=== PATIENT | female | born 1975 | race Caucasian/White ===

== ENCOUNTER 2017-09-04 19:00 | Inpatient (IN) | payer OTHER ==
[2017-09-04] MEDS: HYDROmorphONE 0.5 MG/0.5 ML SYG IV ×2 (19:57→23:02)
[2017-09-04] MEDS ORDERED: ONDANSETRON 4 MG INJ IV (20:30)
[2017-09-04] MEDS ORDERED: ACETAMINOPHEN 325 MG TAB PO (20:30)
[2017-09-04] MEDS ORDERED: DOCUSATE SODIUM 100 MG CAP PO (20:30)
[2017-09-04] MEDS ORDERED: NACL 0.9% 3 ML SYG IV (20:30)
[2017-09-04] MEDS ORDERED: BISACODYL (EC) 5 MG TAB PO (20:30)
[2017-09-04 21:38] LABS: ADD MAN DIFF? NO
[2017-09-04 21:46] LABS: WHITE BLOOD COUNT 4.1 10^3/ul (4.8-10.8)
[2017-09-04 21:46] LABS: BASOPHILS % 0.2 % (0.0-2.0); EOSINOPHILS # 0.1 10^3/ul (0.0-0.5); EOSINOPHILS % 2.7 % (0.0-7.0); HEMATOCRIT 39.3 % (37.0-47.0); HEMOGLOBIN 13.1 g/dl (12.0-16.0); LYMPHOCYTES # 1.4 10^3/ul (0.8-2.9); LYMPHOCYTES % 34.4 % (15.0-51.0); MEAN CORPUSCULAR HEMOGLOBIN 28.5 pg (29.0-33.0); MEAN CORPUSCULAR HGB CONC 33.3 g/dl (32.0-37.0); MEAN CORPUSCULAR VOLUME 85.4 fl (82.0-101.0); MEAN PLATELET VOLUME 8.9 fl (7.4-10.4); MONOCYTE # 0.4 10^3/ul (0.3-0.9); NEUTROPHIL # 2.2 10^3/ul (1.6-7.5); NEUTROPHILS % 53.5 % (39.0-77.0); PLATELET COUNT 172 10^3/UL (140-415); RED CELL DISTRIBUTION WIDTH 14.2 % (11.5-14.5)
[2017-09-04 21:56] LABS: HEMOGLOBIN A1C 5.3 % (0-5.9)
[2017-09-04 22:01] LABS: CHOLESTEROL 195 mg/dl (100-200)
[2017-09-04 22:01] LABS: ALANINE AMINOTRANSFERASE 39 IU/L (13-69); ALBUMIN 3.9 g/dl (3.3-4.9); ALBUMIN/GLOBULIN RATIO 1.21; ALKALINE PHOSPHATASE 99 IU/L (42-121); ANION GAP 12 (8-16); ASPARTATE AMINO TRANSFERASE 41 IU/L (15-46); BILIRUBIN,INDIRECT 0.5 mg/dl (0-1.1); BILIRUBIN,TOTAL 0.5 mg/dl (0.2-1.3); BLOOD UREA NITROGEN 12 mg/dl (7-20); CARBON DIOXIDE 29 mmol/L (21-31); CHLORIDE 101 mmol/L (97-110); CHOL/HDL RATIO 3.3 RATIO; CREATININE 0.82 mg/dl (0.44-1.00); GLUCOSE 111 mg/dl (70-220); HDL CHOLESTEROL 58 mg/dl (34-88); LDL CHOLESTEROL,CALCULATED 93 mg/dl; POTASSIUM 3.6 mmol/L (3.5-5.1); SODIUM 138 mmol/L (135-144); TOTAL PROTEIN 7.1 g/dl (6.1-8.1); TRIGLYCERIDES 219 mg/dl (0-149)
[2017-09-04 22:07] LABS: INR 1.09; PROTIME 14.2 Sec (11.9-14.9); PT RATIO 1.1
[2017-09-04 22:08] LABS: PARTIAL THROMBOPLASTIN TIME 34.3 Sec (25.0-35.0)
[2017-09-04 22:26] LABS: MAGNESIUM 1.8 mg/dl (1.7-2.5)
[2017-09-04] MEDS ORDERED: VITAMIN A & D 5 GM OINT PACKET TOP (23:07)
[2017-09-04] MEDS: GABAPENTIN 400 MG CAP PO (23:30)
[2017-09-05] MEDS: morphine 2 MG INJ IV ×2 (01:07→06:19)
[2017-09-05] MEDS: CEFTRIAXONE 1 GM/50 ML (PMX) 50 ML IVPB (01:08)
[2017-09-05] MEDS: HYDROmorphONE 0.5 MG/0.5 ML SYG IV ×6 (03:49→20:03)
[2017-09-05] MEDS ORDERED: clonAZEPAM 0.5 MG TAB PO (04:30)
[2017-09-05] MEDS: GABAPENTIN 400 MG CAP PO ×3 (06:19→21:38)
[2017-09-05] MEDS: ENOXAPARIN 60 MG/0.6 ML SYG SC ×2 (06:26→16:16)
[2017-09-05] MEDS: ESCITALOPRAM 10 MG TAB PO (09:00)
[2017-09-05] MEDS ORDERED: ENOXAPARIN 60 MG/0.6 ML SYG SC (09:00)
[2017-09-05 09:47] LABS: ADD MAN DIFF? NO
[2017-09-05 09:53] LABS: WHITE BLOOD COUNT 3.5 10^3/ul (4.8-10.8)
[2017-09-05 09:53] LABS: BASOPHILS % 0.6 % (0.0-2.0); EOSINOPHILS # 0.2 10^3/ul (0.0-0.5); EOSINOPHILS % 4.9 % (0.0-7.0); HEMATOCRIT 40.7 % (37.0-47.0); HEMOGLOBIN 13.1 g/dl (12.0-16.0); LYMPHOCYTES # 1.2 10^3/ul (0.8-2.9); LYMPHOCYTES % 33.2 % (15.0-51.0); MEAN CORPUSCULAR HGB CONC 32.2 g/dl (32.0-37.0); MONOCYTE # 0.3 10^3/ul (0.3-0.9); MONOCYTES % 9.5 % (0.0-11.0); NEUTROPHIL # 1.8 10^3/ul (1.6-7.5); NEUTROPHILS % 51.5 % (39.0-77.0); PLATELET COUNT 178 10^3/UL (140-415); RED BLOOD COUNT 4.68 10^6/ul (4.20-5.40); RED CELL DISTRIBUTION WIDTH 14.5 % (11.5-14.5)
[2017-09-05 10:16] LABS: ALANINE AMINOTRANSFERASE 47 IU/L (13-69); ALBUMIN/GLOBULIN RATIO 1.14; ALKALINE PHOSPHATASE 107 IU/L (42-121); ANION GAP 16 (8-16); ASPARTATE AMINO TRANSFERASE 57 IU/L (15-46); BILIRUBIN,INDIRECT 0.5 mg/dl (0-1.1); BILIRUBIN,TOTAL 0.5 mg/dl (0.2-1.3); BLOOD UREA NITROGEN 10 mg/dl (7-20); CALCIUM 9.2 mg/dl (8.4-10.2); CARBON DIOXIDE 30 mmol/L (21-31); CHLORIDE 100 mmol/L (97-110); CREATININE 0.66 mg/dl (0.44-1.00); GLUCOSE 85 mg/dl (70-220); SODIUM 142 mmol/L (135-144); TOTAL PROTEIN 7.5 g/dl (6.1-8.1)
[2017-09-05] MEDS: CARISOPRODOL 350 MG TAB PO ×2 (13:02→21:38)
[2017-09-05] MEDS: oxyCODONE (CR) 15 MG TAB [oxyCONTIN] PO (21:38)
[2017-09-05] MEDS: QUETIAPINE 25 MG TAB PO (21:38)
[2017-09-06] MEDS: CEFTRIAXONE 1 GM/50 ML (PMX) 50 ML IVPB (00:09)
[2017-09-06] MEDS: HYDROmorphONE 0.5 MG/0.5 ML SYG IV ×7 (00:09→21:58)
[2017-09-06] MEDS: INFLUENZA VIRUS VACCINE 0.5 ML SYG IM* (00:16)
[2017-09-06] MEDS: GABAPENTIN 400 MG CAP PO ×3 (05:39→21:57)
[2017-09-06] MEDS: ENOXAPARIN 60 MG/0.6 ML SYG SC ×2 (06:00→18:51)
[2017-09-06 07:15] LABS: ADD MAN DIFF? NO
[2017-09-06 07:17] LABS: BASOPHILS % 0.3 % (0.0-2.0); EOSINOPHILS # 0.2 10^3/ul (0.0-0.5); EOSINOPHILS % 7.3 % (0.0-7.0); HEMOGLOBIN 12.2 g/dl (12.0-16.0); LYMPHOCYTES # 1.3 10^3/ul (0.8-2.9); MEAN CORPUSCULAR HEMOGLOBIN 27.9 pg (29.0-33.0); MEAN CORPUSCULAR HGB CONC 32.1 g/dl (32.0-37.0); MEAN PLATELET VOLUME 9.2 fl (7.4-10.4); MONOCYTE # 0.3 10^3/ul (0.3-0.9); MONOCYTES % 8.9 % (0.0-11.0); NEUTROPHIL # 1.4 10^3/ul (1.6-7.5); NEUTROPHILS % 43.2 % (39.0-77.0); PLATELET COUNT 128 10^3/UL (140-415); RED BLOOD COUNT 4.37 10^6/ul (4.20-5.40); RED CELL DISTRIBUTION WIDTH 14.2 % (11.5-14.5)
[2017-09-06 07:17] LABS: WHITE BLOOD COUNT 3.2 10^3/ul (4.8-10.8)
[2017-09-06 07:48] LABS: PHOSPHORUS 3.3 mg/dl (2.5-4.9)
[2017-09-06 07:48] LABS: MAGNESIUM 1.9 mg/dl (1.7-2.5)
[2017-09-06 07:58] LABS: ALANINE AMINOTRANSFERASE 44 IU/L (13-69); ALBUMIN 3.5 g/dl (3.3-4.9); ALBUMIN/GLOBULIN RATIO 1.25; ALKALINE PHOSPHATASE 84 IU/L (42-121); ANION GAP 13 (8-16); ASPARTATE AMINO TRANSFERASE 43 IU/L (15-46); BILIRUBIN,INDIRECT 0.2 mg/dl (0-1.1); BILIRUBIN,TOTAL 0.2 mg/dl (0.2-1.3); BLOOD UREA NITROGEN 11 mg/dl (7-20); CALCIUM 8.7 mg/dl (8.4-10.2); CARBON DIOXIDE 31 mmol/L (21-31); CHLORIDE 103 mmol/L (97-110); CREATININE 0.67 mg/dl (0.44-1.00); GLUCOSE 84 mg/dl (70-220); POTASSIUM 3.8 mmol/L (3.5-5.1); SODIUM 143 mmol/L (135-144); TOTAL PROTEIN 6.3 g/dl (6.1-8.1)
[2017-09-06] MEDS: ESCITALOPRAM 10 MG TAB PO (09:00)
[2017-09-06] MEDS: POLYETHYLENE GLYCOL 17 GM PACKET PO (09:00)
[2017-09-06] MEDS: oxyCODONE (CR) 15 MG TAB [oxyCONTIN] PO ×2 (10:08→21:57)
[2017-09-06] MEDS: CARISOPRODOL 350 MG TAB PO ×2 (10:08→21:57)
[2017-09-06] MEDS: QUETIAPINE 25 MG TAB PO (21:57)
[2017-09-07] MEDS: CEFTRIAXONE 1 GM/50 ML (PMX) 50 ML IVPB (00:04)
[2017-09-07] MEDS: HYDROmorphONE 0.5 MG/0.5 ML SYG IV ×7 (01:03→21:50)
[2017-09-07] MEDS: ENOXAPARIN 60 MG/0.6 ML SYG SC ×2 (04:56→15:57)
[2017-09-07] MEDS: GABAPENTIN 400 MG CAP PO ×3 (06:39→21:49)
[2017-09-07] MEDS: CARISOPRODOL 350 MG TAB PO ×2 (06:39→21:49)
[2017-09-07 08:06] LABS: ADD MAN DIFF? NO
[2017-09-07 08:11] LABS: WHITE BLOOD COUNT 3.5 10^3/ul (4.8-10.8)
[2017-09-07 08:11] LABS: BASOPHILS % 0.6 % (0.0-2.0); EOSINOPHILS # 0.3 10^3/ul (0.0-0.5); EOSINOPHILS % 7.9 % (0.0-7.0); HEMATOCRIT 41.5 % (37.0-47.0); HEMOGLOBIN 13.3 g/dl (12.0-16.0); LYMPHOCYTES # 1.6 10^3/ul (0.8-2.9); LYMPHOCYTES % 43.8 % (15.0-51.0); MEAN CORPUSCULAR HEMOGLOBIN 28.4 pg (29.0-33.0); MEAN CORPUSCULAR VOLUME 88.7 fl (82.0-101.0); MEAN PLATELET VOLUME 9.8 fl (7.4-10.4); MONOCYTE # 0.3 10^3/ul (0.3-0.9); MONOCYTES % 8.5 % (0.0-11.0); NEUTROPHIL # 1.4 10^3/ul (1.6-7.5); NEUTROPHILS % 38.9 % (39.0-77.0); PLATELET COUNT 136 10^3/UL (140-415); RED BLOOD COUNT 4.68 10^6/ul (4.20-5.40); RED CELL DISTRIBUTION WIDTH 14.2 % (11.5-14.5)
[2017-09-07 08:34] LABS: PHOSPHORUS 3.4 mg/dl (2.5-4.9)
[2017-09-07 08:34] LABS: MAGNESIUM 1.8 mg/dl (1.7-2.5)
[2017-09-07 08:36] LABS: ALANINE AMINOTRANSFERASE 74 IU/L (13-69); ALBUMIN 3.6 g/dl (3.3-4.9); ALBUMIN/GLOBULIN RATIO 1.09; ALKALINE PHOSPHATASE 83 IU/L (42-121); ANION GAP 12 (8-16); ASPARTATE AMINO TRANSFERASE 84 IU/L (15-46); BILIRUBIN,INDIRECT 0.1 mg/dl (0-1.1); BILIRUBIN,TOTAL 0.1 mg/dl (0.2-1.3); BLOOD UREA NITROGEN 9 mg/dl (7-20); CALCIUM 8.9 mg/dl (8.4-10.2); CARBON DIOXIDE 32 mmol/L (21-31); CHLORIDE 103 mmol/L (97-110); CREATININE 0.61 mg/dl (0.44-1.00); GLUCOSE 75 mg/dl (70-220); SODIUM 143 mmol/L (135-144); TOTAL PROTEIN 6.9 g/dl (6.1-8.1)
[2017-09-07] MEDS: ESCITALOPRAM 10 MG TAB PO (09:24)
[2017-09-07] MEDS: oxyCODONE (CR) 15 MG TAB [oxyCONTIN] PO ×2 (09:25→21:07)
[2017-09-07] MEDS: POLYETHYLENE GLYCOL 17 GM PACKET PO (09:25)
[2017-09-07] MEDS: NYSTATIN 30 GM POWDER BTL TOP (14:04)
[2017-09-07] MEDS: QUETIAPINE 25 MG TAB PO (21:07)
[2017-09-08] MEDS: CEFTRIAXONE 1 GM/50 ML (PMX) 50 ML IVPB (00:49)
[2017-09-08] MEDS: HYDROmorphONE 0.5 MG/0.5 ML SYG IV ×7 (00:49→19:08)
[2017-09-08] MEDS: ENOXAPARIN 60 MG/0.6 ML SYG SC ×2 (04:04→16:15)
[2017-09-08] MEDS: GABAPENTIN 400 MG CAP PO ×3 (06:43→22:01)
[2017-09-08] MEDS: CARISOPRODOL 350 MG TAB PO ×2 (06:43→22:01)
[2017-09-08 08:24] LABS: ADD MAN DIFF? NO
[2017-09-08] MEDS: oxyCODONE (CR) 15 MG TAB [oxyCONTIN] PO ×2 (08:27→20:57)
[2017-09-08] MEDS: ESCITALOPRAM 10 MG TAB PO (08:27)
[2017-09-08] MEDS: POLYETHYLENE GLYCOL 17 GM PACKET PO (08:27)
[2017-09-08] MEDS: NYSTATIN 30 GM POWDER BTL TOP ×2 (08:28→20:50)
[2017-09-08 08:34] LABS: BASOPHILS % 0.5 % (0.0-2.0); EOSINOPHILS # 0.4 10^3/ul (0.0-0.5); HEMATOCRIT 37.3 % (37.0-47.0); LYMPHOCYTES # 1.5 10^3/ul (0.8-2.9); LYMPHOCYTES % 40.5 % (15.0-51.0); MEAN CORPUSCULAR HEMOGLOBIN 28.8 pg (29.0-33.0); MEAN CORPUSCULAR HGB CONC 32.2 g/dl (32.0-37.0); MEAN CORPUSCULAR VOLUME 89.4 fl (82.0-101.0); MEAN PLATELET VOLUME 9.7 fl (7.4-10.4); MONOCYTE # 0.3 10^3/ul (0.3-0.9); MONOCYTES % 8.1 % (0.0-11.0); NEUTROPHIL # 1.5 10^3/ul (1.6-7.5); NEUTROPHILS % 40.6 % (39.0-77.0); PLATELET COUNT 136 10^3/UL (140-415); RED BLOOD COUNT 4.17 10^6/ul (4.20-5.40); RED CELL DISTRIBUTION WIDTH 14.6 % (11.5-14.5)
[2017-09-08 08:34] LABS: WHITE BLOOD COUNT 3.7 10^3/ul (4.8-10.8)
[2017-09-08 09:10] LABS: ALBUMIN 3.5 g/dl (3.3-4.9); ALBUMIN/GLOBULIN RATIO 1.09; ALKALINE PHOSPHATASE 86 IU/L (42-121); ANION GAP 12 (8-16); ASPARTATE AMINO TRANSFERASE 93 IU/L (15-46); BLOOD UREA NITROGEN 13 mg/dl (7-20); CALCIUM 8.8 mg/dl (8.4-10.2); CARBON DIOXIDE 33 mmol/L (21-31); CHLORIDE 101 mmol/L (97-110); CREATININE 0.65 mg/dl (0.44-1.00); GLUCOSE 84 mg/dl (70-220); SODIUM 142 mmol/L (135-144); TOTAL PROTEIN 6.7 g/dl (6.1-8.1)
[2017-09-08 09:14] LABS: ALANINE AMINOTRANSFERASE 88 IU/L (13-69)
[2017-09-08 10:20] LABS: PHOSPHORUS 3.3 mg/dl (2.5-4.9)
[2017-09-08 13:16] LABS: ANA SCREEN NEGATIVE (NEGATIVE)
[2017-09-08 16:16] LABS: CARDIOLIPIN AB - IGA <11 APL; CARDIOLIPIN AB - IGG <14 GPL; CARDIOLIPIN AB - IGM <12 MPL
[2017-09-08] MEDS: QUETIAPINE 25 MG TAB PO (20:57)
[2017-09-08] MEDS: HYDROmorphONE 2 MG/ML SYG IV (22:01)
[2017-09-09] MEDS: HYDROmorphONE 2 MG/ML SYG IV ×8 (00:58→22:36)
[2017-09-09] MEDS: CEFTRIAXONE 1 GM/50 ML (PMX) 50 ML IVPB (00:58)
[2017-09-09] MEDS: ENOXAPARIN 60 MG/0.6 ML SYG SC ×2 (04:17→16:22)
[2017-09-09] MEDS: CARISOPRODOL 350 MG TAB PO ×2 (06:51→22:35)
[2017-09-09] MEDS: GABAPENTIN 400 MG CAP PO ×3 (06:51→22:35)
[2017-09-09] MEDS: oxyCODONE (CR) 15 MG TAB [oxyCONTIN] PO ×2 (08:03→21:21)
[2017-09-09] MEDS: NYSTATIN 30 GM POWDER BTL TOP ×2 (08:03→21:21)
[2017-09-09] MEDS: ESCITALOPRAM 10 MG TAB PO (08:03)
[2017-09-09] MEDS: POLYETHYLENE GLYCOL 17 GM PACKET PO (08:04)
[2017-09-09 08:15] LABS: ADD MAN DIFF? NO
[2017-09-09 08:19] LABS: WHITE BLOOD COUNT 3.7 10^3/ul (4.8-10.8)
[2017-09-09 08:19] LABS: BASOPHILS % 0.5 % (0.0-2.0); EOSINOPHILS # 0.4 10^3/ul (0.0-0.5); EOSINOPHILS % 10.7 % (0.0-7.0); HEMATOCRIT 38.1 % (37.0-47.0); HEMOGLOBIN 11.9 g/dl (12.0-16.0); LYMPHOCYTES # 1.4 10^3/ul (0.8-2.9); LYMPHOCYTES % 38.6 % (15.0-51.0); MEAN CORPUSCULAR HEMOGLOBIN 28.2 pg (29.0-33.0); MEAN CORPUSCULAR HGB CONC 31.2 g/dl (32.0-37.0); MEAN CORPUSCULAR VOLUME 90.3 fl (82.0-101.0); MEAN PLATELET VOLUME 9.5 fl (7.4-10.4); MONOCYTE # 0.3 10^3/ul (0.3-0.9); MONOCYTES % 7.9 % (0.0-11.0); NEUTROPHIL # 1.5 10^3/ul (1.6-7.5); PLATELET COUNT 117 10^3/UL (140-415); RED BLOOD COUNT 4.22 10^6/ul (4.20-5.40); RED CELL DISTRIBUTION WIDTH 14.7 % (11.5-14.5)
[2017-09-09 08:48] LABS: ALANINE AMINOTRANSFERASE 108 IU/L (13-69); ALBUMIN 3.5 g/dl (3.3-4.9); ALBUMIN/GLOBULIN RATIO 1.16; ALKALINE PHOSPHATASE 82 IU/L (42-121); ANION GAP 11 (8-16); ASPARTATE AMINO TRANSFERASE 100 IU/L (15-46); BLOOD UREA NITROGEN 10 mg/dl (7-20); CALCIUM 8.6 mg/dl (8.4-10.2); CARBON DIOXIDE 33 mmol/L (21-31); CHLORIDE 101 mmol/L (97-110); CREATININE 0.62 mg/dl (0.44-1.00); GLUCOSE 87 mg/dl (70-220); SODIUM 141 mmol/L (135-144); TOTAL PROTEIN 6.5 g/dl (6.1-8.1)
[2017-09-09] MEDS: clonAZEPAM 0.5 MG TAB PO ×2 (13:30→22:36)
[2017-09-09] MEDS: QUETIAPINE 25 MG TAB PO (21:21)
[2017-09-10] MEDS: CEFTRIAXONE 1 GM/50 ML (PMX) 50 ML IVPB (00:06)
[2017-09-10] MEDS: HYDROmorphONE 2 MG/ML SYG IV ×8 (01:37→22:39)
[2017-09-10] MEDS: ENOXAPARIN 60 MG/0.6 ML SYG SC ×2 (04:44→16:55)
[2017-09-10] MEDS: clonAZEPAM 0.5 MG TAB PO ×3 (06:19→22:17)
[2017-09-10] MEDS: GABAPENTIN 400 MG CAP PO ×3 (06:19→22:17)
[2017-09-10] MEDS: POLYETHYLENE GLYCOL 17 GM PACKET PO (09:00)
[2017-09-10] MEDS: CARISOPRODOL 350 MG TAB PO (09:52)
[2017-09-10] MEDS: oxyCODONE (CR) 15 MG TAB [oxyCONTIN] PO ×2 (09:52→22:17)
[2017-09-10] MEDS: ESCITALOPRAM 10 MG TAB PO (09:52)
[2017-09-10] MEDS: NYSTATIN 30 GM POWDER BTL TOP ×2 (09:52→22:19)
[2017-09-10 10:30] LABS: ADD MAN DIFF? NO
[2017-09-10 10:31] LABS: WHITE BLOOD COUNT 3.5 10^3/ul (4.8-10.8)
[2017-09-10 10:31] LABS: BASOPHILS % 0.3 % (0.0-2.0); EOSINOPHILS # 0.4 10^3/ul (0.0-0.5); EOSINOPHILS % 12.1 % (0.0-7.0); HEMATOCRIT 36.9 % (37.0-47.0); HEMOGLOBIN 11.8 g/dl (12.0-16.0); LYMPHOCYTES # 1.1 10^3/ul (0.8-2.9); LYMPHOCYTES % 32.9 % (15.0-51.0); MEAN CORPUSCULAR HEMOGLOBIN 28.8 pg (29.0-33.0); MEAN PLATELET VOLUME 9.3 fl (7.4-10.4); MONOCYTE # 0.3 10^3/ul (0.3-0.9); MONOCYTES % 8.1 % (0.0-11.0); NEUTROPHIL # 1.6 10^3/ul (1.6-7.5); NEUTROPHILS % 46.3 % (39.0-77.0); PLATELET COUNT 127 10^3/UL (140-415); RED CELL DISTRIBUTION WIDTH 14.8 % (11.5-14.5)
[2017-09-10] MEDS: GUAIFENESIN 20 MG/ML 5ML CUP PO (16:54)
[2017-09-10] MEDS: QUETIAPINE 25 MG TAB PO (22:18)
[2017-09-11] MEDS: CEFTRIAXONE 1 GM/50 ML (PMX) 50 ML IVPB (00:16)
[2017-09-11] MEDS: HYDROmorphONE 2 MG/ML SYG IV ×9 (01:43→22:00)
[2017-09-11] MEDS: ENOXAPARIN 60 MG/0.6 ML SYG SC ×2 (04:49→16:04)
[2017-09-11] MEDS: GABAPENTIN 400 MG CAP PO ×3 (05:31→21:08)
[2017-09-11] MEDS: CARISOPRODOL 350 MG TAB PO ×2 (05:31→22:00)
[2017-09-11] MEDS: clonAZEPAM 0.5 MG TAB PO ×3 (05:32→21:09)
[2017-09-11] MEDS: POLYETHYLENE GLYCOL 17 GM PACKET PO (09:00)
[2017-09-11] MEDS: ESCITALOPRAM 10 MG TAB PO (09:55)
[2017-09-11] MEDS: oxyCODONE (CR) 15 MG TAB [oxyCONTIN] PO ×2 (09:56→21:08)
[2017-09-11] MEDS: NYSTATIN 30 GM POWDER BTL TOP ×2 (09:56→21:09)
[2017-09-11 13:17] LABS: HEPARIN INDUCED PLATELET AB NEGATIVE (NEGATIVE)
[2017-09-11] MEDS: QUETIAPINE 25 MG TAB PO (21:07)
[2017-09-12] MEDS: GABAPENTIN 400 MG CAP PO ×3 (05:03→21:51)
[2017-09-12] MEDS: clonAZEPAM 0.5 MG TAB PO ×3 (05:03→21:52)
[2017-09-12] MEDS: ENOXAPARIN 60 MG/0.6 ML SYG SC (05:05)
[2017-09-12] MEDS: HYDROmorphONE 2 MG/ML SYG IV ×6 (05:09→21:52)
[2017-09-12] MEDS: CARISOPRODOL 350 MG TAB PO ×2 (06:20→22:05)
[2017-09-12] MEDS: NYSTATIN 30 GM POWDER BTL TOP ×2 (09:00→21:11)
[2017-09-12] MEDS: POLYETHYLENE GLYCOL 17 GM PACKET PO (09:00)
[2017-09-12] MEDS: ESCITALOPRAM 10 MG TAB PO (09:20)
[2017-09-12] MEDS: oxyCODONE (CR) 15 MG TAB [oxyCONTIN] PO ×2 (09:20→21:07)
[2017-09-12] MEDS: APIXABAN 5 MG TABLET PO (17:43)
[2017-09-12] MEDS: QUETIAPINE 25 MG TAB PO (21:07)
[2017-09-13] MEDS: HYDROmorphONE 2 MG/ML SYG IV ×7 (00:49→19:40)
[2017-09-13 06:24] LABS: ADD MAN DIFF? NO
[2017-09-13 06:27] LABS: WHITE BLOOD COUNT 3.8 10^3/ul (4.8-10.8)
[2017-09-13 06:27] LABS: BASOPHILS % 0.5 % (0.0-2.0); EOSINOPHILS # 0.4 10^3/ul (0.0-0.5); EOSINOPHILS % 10.4 % (0.0-7.0); HEMATOCRIT 36.1 % (37.0-47.0); HEMOGLOBIN 11.6 g/dl (12.0-16.0); LYMPHOCYTES # 1.3 10^3/ul (0.8-2.9); LYMPHOCYTES % 34.3 % (15.0-51.0); MEAN CORPUSCULAR HEMOGLOBIN 28.7 pg (29.0-33.0); MEAN CORPUSCULAR HGB CONC 32.1 g/dl (32.0-37.0); MEAN CORPUSCULAR VOLUME 89.4 fl (82.0-101.0); MEAN PLATELET VOLUME 9.6 fl (7.4-10.4); MONOCYTE # 0.4 10^3/ul (0.3-0.9); MONOCYTES % 10.1 % (0.0-11.0); NEUTROPHIL # 1.7 10^3/ul (1.6-7.5); NEUTROPHILS % 44.4 % (39.0-77.0); PLATELET COUNT 142 10^3/UL (140-415); RED BLOOD COUNT 4.04 10^6/ul (4.20-5.40); RED CELL DISTRIBUTION WIDTH 15.2 % (11.5-14.5)
[2017-09-13] MEDS: GABAPENTIN 400 MG CAP PO ×2 (06:41→13:55)
[2017-09-13] MEDS: clonAZEPAM 0.5 MG TAB PO ×2 (06:41→13:55)
[2017-09-13] MEDS: POLYETHYLENE GLYCOL 17 GM PACKET PO (08:45)
[2017-09-13] MEDS: ESCITALOPRAM 10 MG TAB PO (08:45)
[2017-09-13] MEDS: oxyCODONE (CR) 15 MG TAB [oxyCONTIN] PO ×2 (08:46→20:47)
[2017-09-13] MEDS: ENOXAPARIN 60 MG/0.6 ML SYG SC ×2 (09:00→21:06)
[2017-09-13] MEDS: NYSTATIN 30 GM POWDER BTL TOP ×2 (09:37→20:49)
[2017-09-13] MEDS: HYDROmorphONE 0.5 MG/0.5 ML SYG IV (17:11)
[2017-09-13] MEDS: QUETIAPINE 25 MG TAB PO (20:47)
[2017-09-13] MEDS: CARISOPRODOL 350 MG TAB PO (20:48)
[2017-09-14] MEDS: GABAPENTIN 400 MG CAP PO ×4 (00:58→20:25)
[2017-09-14] MEDS: HYDROmorphONE 2 MG/ML SYG IV ×6 (00:59→22:06)
[2017-09-14] MEDS: clonAZEPAM 0.5 MG TAB PO ×4 (00:59→22:06)
[2017-09-14] MEDS: ESCITALOPRAM 10 MG TAB PO (08:51)
[2017-09-14] MEDS: oxyCODONE (CR) 15 MG TAB [oxyCONTIN] PO ×2 (08:52→20:24)
[2017-09-14] MEDS: POLYETHYLENE GLYCOL 17 GM PACKET PO (08:52)
[2017-09-14] MEDS: ENOXAPARIN 60 MG/0.6 ML SYG SC ×2 (08:57→20:26)
[2017-09-14] MEDS: NYSTATIN 30 GM POWDER BTL TOP ×2 (08:58→20:26)
[2017-09-14] MEDS: CARISOPRODOL 350 MG TAB PO ×2 (10:05→22:11)
[2017-09-14] MEDS: QUETIAPINE 25 MG TAB PO (20:24)
[2017-09-15] MEDS: HYDROmorphONE 2 MG/ML SYG IV ×4 (02:03→14:06)
[2017-09-15] MEDS: GABAPENTIN 400 MG CAP PO ×2 (06:11→13:24)
[2017-09-15] MEDS: clonAZEPAM 0.5 MG TAB PO ×2 (06:11→13:24)
[2017-09-15] MEDS: POLYETHYLENE GLYCOL 17 GM PACKET PO ×2 (09:00→09:36)
[2017-09-15] MEDS: ESCITALOPRAM 10 MG TAB PO (09:36)
[2017-09-15] MEDS: NYSTATIN 30 GM POWDER BTL TOP (09:37)
[2017-09-15] MEDS: ENOXAPARIN 60 MG/0.6 ML SYG SC (09:37)
[2017-09-15] MEDS: oxyCODONE (CR) 15 MG TAB [oxyCONTIN] PO (10:53)
[2017-09-19] MEDS ORDERED: APIXABAN 5 MG TABLET PO (21:00)
== END 2017-09-15 15:00 | disposition home or self-care (01) | DRG 299 ==
LOC: MS4 19:00
DX: I82.412 Acute embolism and thrombosis of left femoral vein (principal); I26.99 Other pulmonary embolism without acute cor pulmonale; Z68.42 Body mass index [BMI] 45.0-49.9, adult; D68.59 Other primary thrombophilia; E66.01 Morbid (severe) obesity due to excess calories; D69.6 Thrombocytopenia, unspecified; N39.0 Urinary tract infection, site not specified; D75.82 Heparin induced thrombocytopenia (HIT); F43.10 Post-traumatic stress disorder, unspecified; X58.XXXA Exposure to other specified factors, initial encounter; Y93.9 Activity, unspecified; Y92.019 Unspecified place in single-family (private) house as the place of occurrence of the external cause; Y99.8 Other external cause status; M54.5 Low back pain; F41.9 Anxiety disorder, unspecified; Z79.02 Long term (current) use of antithrombotics/antiplatelets
CPT/HCPCS: 80053; 80061; 81240; 82962; 83036; 83735; 83890; 84100; 84443; 84703; 85025; 85300; 85302; 85305; 85610; 85613; 85730; 86022; 86038; 86147; 87081; 90686; 93306; 93970

== ENCOUNTER 2018-02-26 11:52 | Inpatient (IN) | payer OTHER ==
[2018-02-26] MEDS: SOD CHLORIDE 0.9% 1,000 ML IV (12:42)
[2018-02-26] MEDS: KETOROLAC 15 MG INJ IV (12:42)
[2018-02-26 12:52] LABS: ADD MAN DIFF? NO
[2018-02-26 13:01] LABS: BASOPHILS % 0.2 % (0.0-2.0); EOSINOPHILS # 0.1 10^3/ul (0.0-0.5); EOSINOPHILS % 0.5 % (0.0-7.0); HEMATOCRIT 28.6 % (37.0-47.0); HEMOGLOBIN 9.1 g/dl (12.0-16.0); LYMPHOCYTES # 0.7 10^3/ul (0.8-2.9); LYMPHOCYTES % 7.1 % (15.0-51.0); MEAN CORPUSCULAR HEMOGLOBIN 24.5 pg (29.0-33.0); MEAN CORPUSCULAR HGB CONC 31.8 g/dl (32.0-37.0); MEAN CORPUSCULAR VOLUME 77.1 fl (82.0-101.0); MEAN PLATELET VOLUME 8.9 fl (7.4-10.4); MONOCYTE # 0.7 10^3/ul (0.3-0.9); MONOCYTES % 6.7 % (0.0-11.0); NEUTROPHIL # 8.7 10^3/ul (1.6-7.5); NEUTROPHILS % 84.8 % (39.0-77.0); PLATELET COUNT 185 10^3/UL (140-415); RED BLOOD COUNT 3.71 10^6/ul (4.20-5.40); RED CELL DISTRIBUTION WIDTH 19.4 % (11.5-14.5)
[2018-02-26 13:01] LABS: WHITE BLOOD COUNT 10.2 10^3/ul (4.8-10.8)
[2018-02-26 13:21] LABS: ALANINE AMINOTRANSFERASE 16 IU/L (13-69); ALBUMIN 3.5 g/dl (3.3-4.9); ALKALINE PHOSPHATASE 107 IU/L (42-121); ANION GAP 22 (8-16); ASPARTATE AMINO TRANSFERASE 15 IU/L (15-46); BILIRUBIN,INDIRECT 0.7 mg/dl (0-1.1); BILIRUBIN,TOTAL 0.7 mg/dl (0.2-1.3); BLOOD UREA NITROGEN 13 mg/dl (7-20); CALCIUM 8.8 mg/dl (8.4-10.2); CARBON DIOXIDE 26 mmol/L (21-31); CHLORIDE 94 mmol/L (97-110); CREATININE 0.88 mg/dl (0.44-1.00); GLUCOSE 115 mg/dl (70-220); LIPASE 25 U/L (23-300); POTASSIUM 3.1 mmol/L (3.5-5.1); SODIUM 139 mmol/L (135-144)
[2018-02-26] MEDS: ALBUTEROL 0.5% (NEB) 2.5 MG/0.5 ML AMP INH (13:22)
[2018-02-26 13:24] LABS: INR 1.29; PROTIME 16.3 Sec (11.9-14.9); PT RATIO 1.3
[2018-02-26 13:25] LABS: PARTIAL THROMBOPLASTIN TIME 29.6 Sec (25.0-35.0)
[2018-02-26 13:32] LABS: TROPONIN-I < 0.012 ng/ml (0.000-0.120)
[2018-02-26 14:10] LABS: B-TYPE NATRIURETIC PEPTIDE 82 PG/ML (0-125)
[2018-02-26] MEDS: HYDROmorphONE 2 MG/ML SYG IV (14:45)
[2018-02-26] MEDS: HEPARIN 25000 UNITS/250 ML 250 ML IV ×2 (14:46→21:02)
[2018-02-26 15:04] LABS: ANION GAP 21 (8-16); BLOOD UREA NITROGEN 13 mg/dl (7-20); CARBON DIOXIDE 28 mmol/L (21-31); CHLORIDE 94 mmol/L (97-110); CREATININE 0.89 mg/dl (0.44-1.00); GLUCOSE 115 mg/dl (70-220); SODIUM 140 mmol/L (135-144)
[2018-02-26 15:07] LABS: AADO2 Arterial 78.6 mmHg (7.0-24.0); Allen Test ACCEPTAB; Arterial Base Excess 4.5 mmol/L (-3.0-3); Arterial Blood Gas Oxygen Sat 97.6 mmHG (95.0-98.0); Arterial COHb 0.7 % (0.0-3.0); Arterial Fraction of Oxyhgb 96.7 % (93.0-99.0); Arterial HCO3 24.8 mmol/L (22.0-26.0); Arterial MetHb 0.2 % (0.0-1.5); Arterial Total Hemglobin 10.8 g/dl (12.0-18.0); Arterial pCO2 24.1 mmhg (35-45); MODE NASAL CANNULA; Site Right Radial
[2018-02-26] MEDS: SOD CHLORIDE 0.9% 100 ML (15:15)
[2018-02-26] MEDS: IOHEXOL 100 ML (15:15)
[2018-02-26 15:20] LABS: POTASSIUM 2.6 mmol/L (3.5-5.1)
[2018-02-26] MEDS: POTASSIUM CHLORIDE 100 ML IVPB ×3 (15:56→20:00)
[2018-02-26] MEDS: POTASSIUM CHLORIDE (SR) 20 MEQ TAB PO (16:07)
[2018-02-26] MEDS ORDERED: POTASSIUM CHLORIDE 100 ML IVPB (17:00)
[2018-02-26] MEDS ORDERED: ACETAMINOPHEN 650 MG SUPP PR (17:00)
[2018-02-26] MEDS ORDERED: BISACODYL 10 MG SUPP PR (17:00)
[2018-02-26] MEDS ORDERED: ACETAMINOPHEN 325 MG TAB PO (17:00)
[2018-02-26] MEDS ORDERED: MAGNESIUM HYDROXIDE 30ML CUP PO (17:00)
[2018-02-26] MEDS ORDERED: HEPARIN 1000 UNITS/ML 10 ML INJ IV ×2 (17:00)
[2018-02-26] MEDS ORDERED: ALBUTEROL/IPRATROPIUM (NEB) 3 ML AMP HHN (17:00)
[2018-02-26] MEDS ORDERED: HYDROCODONE/APAP (5/325) TAB PO (17:00)
[2018-02-26] MEDS ORDERED: ONDANSETRON 4 MG INJ IV (17:00)
[2018-02-26] MEDS ORDERED: DOCUSATE SODIUM 100 MG CAP PO (17:00)
[2018-02-26] MEDS ORDERED: NACL 0.9% 3 ML SYG IV (17:00)
[2018-02-26] MEDS ORDERED: morphine 2 MG INJ IV (17:00)
[2018-02-26] MEDS: HYDROmorphONE 1 MG/ML SYG IV ×2 (17:10→21:09)
[2018-02-26 17:30] LABS: IRON 43 ug/dl (35-150)
[2018-02-26 17:39] LABS: MAGNESIUM 1.7 mg/dl (1.7-2.5)
[2018-02-26 17:39] LABS: % IRON SATURATION 12 % SAT (22-52); TOTAL IRON BINDING CAPACITY 348 ug/dl (241-421)
[2018-02-26 17:49] LABS: CK-MB 0.23 ng/ml (0.0-2.4)
[2018-02-26 17:57] LABS: CREATINE KINASE < 20 IU/L (23-200)
[2018-02-26] MEDS: HYDROCODONE/APAP (5/325) TAB PO ×2 (18:03→23:14)
[2018-02-26 18:13] LABS: TROPONIN-I < 0.012 ng/ml (0.000-0.120)
[2018-02-26 19:29] LABS: ADD MAN DIFF? NO
[2018-02-26 19:31] LABS: BASOPHILS % 0.1 % (0.0-2.0); EOSINOPHILS # 0.1 10^3/ul (0.0-0.5); EOSINOPHILS % 0.8 % (0.0-7.0); HEMOGLOBIN 8.3 g/dl (12.0-16.0); LYMPHOCYTES # 1.1 10^3/ul (0.8-2.9); LYMPHOCYTES % 11.8 % (15.0-51.0); MEAN CORPUSCULAR HEMOGLOBIN 24.8 pg (29.0-33.0); MEAN CORPUSCULAR HGB CONC 31.9 g/dl (32.0-37.0); MEAN CORPUSCULAR VOLUME 77.6 fl (82.0-101.0); MEAN PLATELET VOLUME 8.7 fl (7.4-10.4); MONOCYTE # 0.7 10^3/ul (0.3-0.9); MONOCYTES % 7.7 % (0.0-11.0); NEUTROPHIL # 7.2 10^3/ul (1.6-7.5); NEUTROPHILS % 78.9 % (39.0-77.0); PLATELET COUNT 181 10^3/UL (140-415); RED BLOOD COUNT 3.35 10^6/ul (4.20-5.40); RED CELL DISTRIBUTION WIDTH 19.4 % (11.5-14.5)
[2018-02-26 19:31] LABS: WHITE BLOOD COUNT 9.1 10^3/ul (4.8-10.8)
[2018-02-26 19:50] LABS: PROTIME 15.4 Sec (11.9-14.9); PT RATIO 1.2
[2018-02-26] MEDS: BUDESONIDE (NEB) 0.5MG/2ML AMP HHN (20:00)
[2018-02-26] MEDS: CARISOPRODOL 350 MG TAB PO (20:34)
[2018-02-26] MEDS: HEPARIN 1000 UNITS/ML 10 ML INJ IV (21:00)
[2018-02-26 22:46] LABS: CREATINE KINASE < 20 IU/L (23-200)
[2018-02-26 22:54] LABS: CK-MB < 0.22 ng/ml (0.0-2.4); TROPONIN-I < 0.012 ng/ml (0.000-0.120)
[2018-02-26] MEDS: GABAPENTIN 400 MG CAP PO (23:14)
[2018-02-27] MEDS: CARISOPRODOL 350 MG TAB PO ×3 (02:18→16:22)
[2018-02-27] MEDS: HYDROmorphONE 1 MG/ML SYG IV ×6 (02:18→20:59)
[2018-02-27] MEDS: HEPARIN 25000 UNITS/250 ML 250 ML IV ×4 (02:32→18:46)
[2018-02-27 02:56] LABS: ADD MAN DIFF? NO
[2018-02-27 02:58] LABS: WHITE BLOOD COUNT 8.4 10^3/ul (4.8-10.8)
[2018-02-27 02:58] LABS: BASOPHILS % 0.2 % (0.0-2.0); EOSINOPHILS # 0.4 10^3/ul (0.0-0.5); EOSINOPHILS % 4.6 % (0.0-7.0); HEMATOCRIT 27.4 % (37.0-47.0); HEMOGLOBIN 8.6 g/dl (12.0-16.0); LYMPHOCYTES # 1.1 10^3/ul (0.8-2.9); LYMPHOCYTES % 13.5 % (15.0-51.0); MEAN CORPUSCULAR HEMOGLOBIN 24.9 pg (29.0-33.0); MEAN CORPUSCULAR HGB CONC 31.4 g/dl (32.0-37.0); MEAN CORPUSCULAR VOLUME 79.4 fl (82.0-101.0); MEAN PLATELET VOLUME 9.1 fl (7.4-10.4); MONOCYTE # 0.8 10^3/ul (0.3-0.9); MONOCYTES % 8.9 % (0.0-11.0); NEUTROPHIL # 6.1 10^3/ul (1.6-7.5); NEUTROPHILS % 71.7 % (39.0-77.0); PLATELET COUNT 203 10^3/UL (140-415); RED BLOOD COUNT 3.45 10^6/ul (4.20-5.40); RED CELL DISTRIBUTION WIDTH 19.8 % (11.5-14.5)
[2018-02-27 03:09] LABS: HEMOGLOBIN A1C 5.4 % (0-5.9)
[2018-02-27 03:50] LABS: PARTIAL THROMBOPLASTIN TIME > 180.0 Sec (25.0-35.0)
[2018-02-27] MEDS: HYDROCODONE/APAP (5/325) TAB PO ×2 (04:09→08:18)
[2018-02-27 04:59] LABS: T3 UPTAKE 39.1 % (23.5-40.5)
[2018-02-27 05:03] LABS: ALANINE AMINOTRANSFERASE 12 IU/L (13-69); ALBUMIN 3.2 g/dl (3.3-4.9); ALKALINE PHOSPHATASE 99 IU/L (42-121); ANION GAP 15 (8-16); ASPARTATE AMINO TRANSFERASE 16 IU/L (15-46); BILIRUBIN,INDIRECT 0.3 mg/dl (0-1.1); BILIRUBIN,TOTAL 0.3 mg/dl (0.2-1.3); BLOOD UREA NITROGEN 13 mg/dl (7-20); CALCIUM 8.6 mg/dl (8.4-10.2); CARBON DIOXIDE 32 mmol/L (21-31); CHLORIDE 97 mmol/L (97-110); CHOL/HDL RATIO 6.3 RATIO; CHOLESTEROL 147 mg/dl (100-200); CREATININE 0.91 mg/dl (0.44-1.00); GLUCOSE 105 mg/dl (70-220); HDL CHOLESTEROL 23 mg/dl (34-88); LDL CHOLESTEROL,CALCULATED 99 mg/dl; MAGNESIUM 1.9 mg/dl (1.7-2.5); PHOSPHORUS 5.2 mg/dl (2.5-4.9); POTASSIUM 3.2 mmol/L (3.5-5.1); SODIUM 141 mmol/L (135-144); TOTAL PROTEIN 6.4 g/dl (6.1-8.1); TRIGLYCERIDES 125 mg/dl (0-149)
[2018-02-27 05:41] LABS: FREE THYROXINE INDEX (Calc) 4.18 ug/ml (0.65-3.89); T4 (THYROXINE) 10.7 ug/dl (5.5-11.0); THYROID STIMULATING HORMONE 0.665 MIU/L (0.465-4.680)
[2018-02-27] MEDS: PANTOPRAZOLE 40 MG INJ IV (06:00)
[2018-02-27] MEDS: GABAPENTIN 400 MG CAP PO ×3 (06:00→21:00)
[2018-02-27 06:36] LABS: PARTIAL THROMBOPLASTIN TIME 45.4 Sec (25.0-35.0)
[2018-02-27] MEDS: BUDESONIDE (NEB) 0.5MG/2ML AMP HHN ×2 (09:07→20:46)
[2018-02-27] MEDS: ALBUTEROL/IPRATROPIUM (NEB) 3 ML AMP HHN ×4 (09:07→20:46)
[2018-02-27 09:57] LABS: PARTIAL THROMBOPLASTIN TIME 66.7 Sec (25.0-35.0)
[2018-02-27] MEDS: HYDROmorphONE 4 MG TAB PO (10:39)
[2018-02-27] MEDS ORDERED: HYDROmorphONE 4 MG TAB PO (11:30)
[2018-02-27] MEDS: LORAZEPAM 1 MG TAB PO (15:01)
[2018-02-27] MEDS: NYSTATIN 30 GM POWDER BTL TOP (16:20)
[2018-02-27 17:58] LABS: PARTIAL THROMBOPLASTIN TIME 84.1 Sec (25.0-35.0)
[2018-02-28 01:04] LABS: PARTIAL THROMBOPLASTIN TIME 86.8 Sec (25.0-35.0)
[2018-02-28] MEDS: HYDROmorphONE 1 MG/ML SYG IV ×5 (03:01→11:37)
[2018-02-28] MEDS: traMADol 50 MG TAB PO (04:24)
[2018-02-28] MEDS: PANTOPRAZOLE 40 MG INJ IV (06:05)
[2018-02-28] MEDS: GABAPENTIN 400 MG CAP PO ×3 (06:05→23:05)
[2018-02-28] MEDS: HEPARIN 25000 UNITS/250 ML 250 ML IV ×2 (06:23→16:04)
[2018-02-28 06:50] LABS: ADD MAN DIFF? NO
[2018-02-28 07:01] LABS: BASOPHILS % 0.3 % (0.0-2.0); EOSINOPHILS # 0.4 10^3/ul (0.0-0.5); EOSINOPHILS % 5.7 % (0.0-7.0); HEMATOCRIT 26.9 % (37.0-47.0); HEMOGLOBIN 8.4 g/dl (12.0-16.0); MEAN CORPUSCULAR HEMOGLOBIN 25.1 pg (29.0-33.0); MEAN CORPUSCULAR HGB CONC 31.2 g/dl (32.0-37.0); MEAN CORPUSCULAR VOLUME 80.3 fl (82.0-101.0); MEAN PLATELET VOLUME 8.8 fl (7.4-10.4); MONOCYTE # 0.6 10^3/ul (0.3-0.9); MONOCYTES % 7.1 % (0.0-11.0); NEUTROPHIL # 5.7 10^3/ul (1.6-7.5); NEUTROPHILS % 72.9 % (39.0-77.0); PLATELET COUNT 256 10^3/UL (140-415); RED BLOOD COUNT 3.35 10^6/ul (4.20-5.40); RED CELL DISTRIBUTION WIDTH 19.6 % (11.5-14.5)
[2018-02-28 07:01] LABS: WHITE BLOOD COUNT 7.8 10^3/ul (4.8-10.8)
[2018-02-28 07:18] LABS: IRON 32 ug/dl (35-150)
[2018-02-28 07:25] LABS: % IRON SATURATION 10 % SAT (22-52)
[2018-02-28 07:26] LABS: TOTAL IRON BINDING CAPACITY 308 ug/dl (241-421)
[2018-02-28 07:30] LABS: ANION GAP 13 (8-16); BLOOD UREA NITROGEN 14 mg/dl (7-20); CALCIUM 8.4 mg/dl (8.4-10.2); CARBON DIOXIDE 33 mmol/L (21-31); CHLORIDE 96 mmol/L (97-110); CREATININE 0.85 mg/dl (0.44-1.00); GLUCOSE 106 mg/dl (70-220); POTASSIUM 3.3 mmol/L (3.5-5.1); SODIUM 139 mmol/L (135-144)
[2018-02-28 07:43] LABS: PARTIAL THROMBOPLASTIN TIME 99.8 Sec (25.0-35.0)
[2018-02-28 08:26] LABS: THYROID STIMULATING HORMONE 0.698 MIU/L (0.465-4.680)
[2018-02-28] MEDS: BUDESONIDE (NEB) 0.5MG/2ML AMP HHN ×2 (08:52→20:00)
[2018-02-28] MEDS: ALBUTEROL/IPRATROPIUM (NEB) 3 ML AMP HHN ×4 (08:52→21:00)
[2018-02-28] MEDS: CARISOPRODOL 350 MG TAB PO ×3 (09:13→18:44)
[2018-02-28] MEDS: HYDROmorphONE 4 MG TAB PO ×4 (14:58→23:01)
[2018-02-28] MEDS: POLYETHYLENE GLYCOL 17 GM PACKET PO (15:00)
[2018-02-28] MEDS: LORAZEPAM 1 MG TAB PO (15:38)
[2018-03-01] MEDS: CARISOPRODOL 350 MG TAB PO ×3 (01:37→15:59)
[2018-03-01] MEDS: HEPARIN 25000 UNITS/250 ML 250 ML IV ×2 (01:45→14:21)
[2018-03-01] MEDS: HYDROmorphONE 4 MG TAB PO ×5 (03:35→20:06)
[2018-03-01] MEDS: GABAPENTIN 400 MG CAP PO ×3 (06:18→20:05)
[2018-03-01] MEDS: PANTOPRAZOLE 40 MG INJ IV (06:18)
[2018-03-01] MEDS: LORAZEPAM 1 MG TAB PO ×2 (06:39→20:13)
[2018-03-01 07:01] LABS: ADD MAN DIFF? NO
[2018-03-01 07:05] LABS: BASOPHILS % 0.4 % (0.0-2.0); EOSINOPHILS # 0.5 10^3/ul (0.0-0.5); EOSINOPHILS % 6.5 % (0.0-7.0); HEMOGLOBIN 8.2 g/dl (12.0-16.0); LYMPHOCYTES # 1.3 10^3/ul (0.8-2.9); LYMPHOCYTES % 18.2 % (15.0-51.0); MEAN CORPUSCULAR HEMOGLOBIN 24.5 pg (29.0-33.0); MEAN CORPUSCULAR HGB CONC 30.4 g/dl (32.0-37.0); MEAN CORPUSCULAR VOLUME 80.6 fl (82.0-101.0); MEAN PLATELET VOLUME 8.7 fl (7.4-10.4); MONOCYTE # 0.6 10^3/ul (0.3-0.9); MONOCYTES % 9.2 % (0.0-11.0); NEUTROPHIL # 4.5 10^3/ul (1.6-7.5); NEUTROPHILS % 63.8 % (39.0-77.0); PLATELET COUNT 262 10^3/UL (140-415); RED BLOOD COUNT 3.35 10^6/ul (4.20-5.40); RED CELL DISTRIBUTION WIDTH 19.8 % (11.5-14.5)
[2018-03-01 07:35] LABS: ANION GAP 10 (8-16); BLOOD UREA NITROGEN 10 mg/dl (7-20); CALCIUM 8.6 mg/dl (8.4-10.2); CARBON DIOXIDE 36 mmol/L (21-31); CHLORIDE 97 mmol/L (97-110); CREATININE 0.72 mg/dl (0.44-1.00); GLUCOSE 103 mg/dl (70-220); POTASSIUM 3.9 mmol/L (3.5-5.1); SODIUM 139 mmol/L (135-144)
[2018-03-01 07:40] LABS: PARTIAL THROMBOPLASTIN TIME 112.7 Sec (25.0-35.0)
[2018-03-01] MEDS: POLYETHYLENE GLYCOL 17 GM PACKET PO (07:56)
[2018-03-01] MEDS: SENNA/DOCUSATE NA (8.6MG/50MG) TAB PO (08:24)
[2018-03-01] MEDS: ALBUTEROL/IPRATROPIUM (NEB) 3 ML AMP HHN ×4 (08:30→20:23)
[2018-03-01] MEDS: BUDESONIDE (NEB) 0.5MG/2ML AMP HHN ×2 (08:30→20:23)
[2018-03-01] MEDS: HYDROmorphONE 1 MG/ML SYG IV (14:18)
[2018-03-01 15:44] LABS: PARTIAL THROMBOPLASTIN TIME 52.7 Sec (25.0-35.0)
[2018-03-02] MEDS: CARISOPRODOL 350 MG TAB PO ×3 (00:16→15:50)
[2018-03-02] MEDS: HYDROmorphONE 4 MG TAB PO ×6 (00:16→19:52)
[2018-03-02] MEDS: HEPARIN 25000 UNITS/250 ML 250 ML IV ×2 (01:26→15:26)
[2018-03-02] MEDS: LORAZEPAM 1 MG TAB PO ×3 (04:36→19:58)
[2018-03-02 05:12] LABS: ADD MAN DIFF? NO
[2018-03-02 05:30] LABS: BASOPHILS % 0.3 % (0.0-2.0); EOSINOPHILS # 0.4 10^3/ul (0.0-0.5); EOSINOPHILS % 5.2 % (0.0-7.0); HEMATOCRIT 28.7 % (37.0-47.0); HEMOGLOBIN 8.5 g/dl (12.0-16.0); LYMPHOCYTES # 1.2 10^3/ul (0.8-2.9); LYMPHOCYTES % 15.9 % (15.0-51.0); MEAN CORPUSCULAR HEMOGLOBIN 24.1 pg (29.0-33.0); MEAN CORPUSCULAR HGB CONC 29.6 g/dl (32.0-37.0); MEAN CORPUSCULAR VOLUME 81.5 fl (82.0-101.0); MEAN PLATELET VOLUME 8.7 fl (7.4-10.4); MONOCYTE # 0.6 10^3/ul (0.3-0.9); MONOCYTES % 7.9 % (0.0-11.0); NEUTROPHIL # 4.9 10^3/ul (1.6-7.5); NEUTROPHILS % 68.1 % (39.0-77.0); NUCLEATED RED BLOOD CELLS% 0.4 /100WBC (0.0-0.0); PLATELET COUNT 297 10^3/UL (140-415); RED BLOOD COUNT 3.52 10^6/ul (4.20-5.40)
[2018-03-02 05:30] LABS: WHITE BLOOD COUNT 7.2 10^3/ul (4.8-10.8)
[2018-03-02 06:04] LABS: ANION GAP 12 (8-16); BLOOD UREA NITROGEN 12 mg/dl (7-20); CALCIUM 8.8 mg/dl (8.4-10.2); CARBON DIOXIDE 33 mmol/L (21-31); CHLORIDE 99 mmol/L (97-110); CREATININE 0.73 mg/dl (0.44-1.00); GLUCOSE 110 mg/dl (70-220); POTASSIUM 4.2 mmol/L (3.5-5.1); SODIUM 140 mmol/L (135-144)
[2018-03-02] MEDS: PANTOPRAZOLE 40 MG INJ IV (06:10)
[2018-03-02] MEDS: GABAPENTIN 400 MG CAP PO ×3 (06:10→21:44)
[2018-03-02 06:20] LABS: PARTIAL THROMBOPLASTIN TIME 100.4 Sec (25.0-35.0)
[2018-03-02 06:36] LABS: ADD UMIC NO; UR ASCORBIC ACID NEGATIVE (NEGATIVE); UR BILIRUBIN (Dip) NEGATIVE (NEGATIVE); UR BLOOD (Dip) NEGATIVE (NEGATIVE); UR CLARITY CLEAR (CLEAR); UR COLOR YELLOW (YELLOW); UR GLUCOSE (Dip) NEGATIVE (NEGATIVE); UR KETONES (Dip) NEGATIVE (NEGATIVE); UR LEUKOCYTE ESTERASE (Dip) NEGATIVE Leu/ul (NEGATIVE); UR NITRITE (Dip) NEGATIVE (NEGATIVE); UR SPECIFIC GRAVITY (Dip) 1.012 (1.003-1.030); UR TOTAL PROTEIN (Dip) NEGATIVE (NEGATIVE); UR UROBILINOGEN (Dip) NEGATIVE (NEGATIVE)
[2018-03-02] MEDS: BUDESONIDE (NEB) 0.5MG/2ML AMP HHN ×2 (08:29→20:03)
[2018-03-02] MEDS: ALBUTEROL/IPRATROPIUM (NEB) 3 ML AMP HHN ×4 (08:29→20:11)
[2018-03-02] MEDS: POLYETHYLENE GLYCOL 17 GM PACKET PO (09:13)
[2018-03-02] MEDS: SENNA/DOCUSATE NA (8.6MG/50MG) TAB PO (09:13)
[2018-03-02 11:39] LABS: PARTIAL THROMBOPLASTIN TIME 67.3 Sec (25.0-35.0)
[2018-03-02 19:00] LABS: PARTIAL THROMBOPLASTIN TIME 94.9 Sec (25.0-35.0)
[2018-03-03] MEDS: HYDROmorphONE 4 MG TAB PO ×3 (00:40→08:31)
[2018-03-03] MEDS: CARISOPRODOL 350 MG TAB PO ×2 (00:41→08:31)
[2018-03-03] MEDS: HEPARIN 25000 UNITS/250 ML 250 ML IV (01:20)
[2018-03-03] MEDS: LORAZEPAM 1 MG TAB PO (04:39)
[2018-03-03] MEDS: GABAPENTIN 400 MG CAP PO (06:13)
[2018-03-03] MEDS: PANTOPRAZOLE 40 MG INJ IV (06:13)
[2018-03-03 07:07] LABS: ADD MAN DIFF? NO
[2018-03-03 07:11] LABS: BASOPHILS % 0.4 % (0.0-2.0); EOSINOPHILS # 0.5 10^3/ul (0.0-0.5); EOSINOPHILS % 6.9 % (0.0-7.0); HEMATOCRIT 27.4 % (37.0-47.0); LYMPHOCYTES # 1.1 10^3/ul (0.8-2.9); LYMPHOCYTES % 14.7 % (15.0-51.0); MEAN CORPUSCULAR HGB CONC 29.2 g/dl (32.0-37.0); MEAN PLATELET VOLUME 8.9 fl (7.4-10.4); MONOCYTE # 0.7 10^3/ul (0.3-0.9); MONOCYTES % 8.7 % (0.0-11.0); NEUTROPHIL # 5.1 10^3/ul (1.6-7.5); NEUTROPHILS % 64.9 % (39.0-77.0); NUCLEATED RED BLOOD CELLS% 0.4 /100WBC (0.0-0.0); PLATELET COUNT 276 10^3/UL (140-415); RED BLOOD COUNT 3.34 10^6/ul (4.20-5.40); RED CELL DISTRIBUTION WIDTH 20.5 % (11.5-14.5)
[2018-03-03 07:11] LABS: WHITE BLOOD COUNT 7.8 10^3/ul (4.8-10.8)
[2018-03-03 07:44] LABS: ANION GAP 11 (8-16); BLOOD UREA NITROGEN 13 mg/dl (7-20); CALCIUM 8.9 mg/dl (8.4-10.2); CARBON DIOXIDE 33 mmol/L (21-31); CHLORIDE 100 mmol/L (97-110); CREATININE 0.76 mg/dl (0.44-1.00); GLUCOSE 108 mg/dl (70-220); POTASSIUM 4.6 mmol/L (3.5-5.1); SODIUM 139 mmol/L (135-144)
[2018-03-03] MEDS: POLYETHYLENE GLYCOL 17 GM PACKET PO ×3 (08:30→09:00)
[2018-03-03] MEDS: SENNA/DOCUSATE NA (8.6MG/50MG) TAB PO ×2 (08:30→08:36)
[2018-03-03 08:39] LABS: MAGNESIUM 2.3 mg/dl (1.7-2.5)
[2018-03-03 08:39] LABS: PHOSPHORUS 4.5 mg/dl (2.5-4.9)
[2018-03-03 09:03] LABS: PARTIAL THROMBOPLASTIN TIME 128.8 Sec (25.0-35.0)
== END 2018-03-03 09:50 | disposition left against medical advice (07) | DRG 300 ==
LOC: E/R 11:52 → TEL 14:27
DX: I82.413 Acute embolism and thrombosis of femoral vein, bilateral (principal); D68.59 Other primary thrombophilia; Z68.43 Body mass index [BMI] 50.0-59.9, adult; E87.3 Alkalosis; I82.433 Acute embolism and thrombosis of popliteal vein, bilateral; I82.812 Embolism and thrombosis of superficial veins of left lower extremity; E66.01 Morbid (severe) obesity due to excess calories; F43.10 Post-traumatic stress disorder, unspecified; R07.89 Other chest pain; D50.9 Iron deficiency anemia, unspecified; G89.29 Other chronic pain; M54.9 Dorsalgia, unspecified; J44.9 Chronic obstructive pulmonary disease, unspecified; Z86.718 Personal history of other venous thrombosis and embolism; Z79.01 Long term (current) use of anticoagulants; Z86.711 Personal history of pulmonary embolism
CPT/HCPCS: 36415; 36600; 71045; 71275; 80048; 80053; 80061; 81003; 82550; 82553; 82803; 83036; 83540; 83690; 83735; 83880; 84100; 84436; 84443; 84479; 84484; 85025; 85610; 85730; 87040; 87086; 93005; 93306; 93970; 94640; 94644; 94664; 96361; 96374; 99291-25

== ENCOUNTER 2018-11-03 23:05 | Inpatient (IN) | payer OTHER ==
[2018-11-04] MEDS ORDERED: ACETAMINOPHEN 325 MG TAB PO (01:00)
[2018-11-04] MEDS ORDERED: ALBUTEROL/IPRATROPIUM (NEB) 3 ML AMP HHN (01:00)
[2018-11-04] MEDS ORDERED: ONDANSETRON 4 MG INJ IV (01:00)
[2018-11-04] MEDS ORDERED: NACL 0.9% 3 ML SYG IV (01:00)
[2018-11-04] MEDS: METHYLPREDNISOLONE 40 MG INJ IV (01:23)
[2018-11-04] MEDS: morphine 4 MG/ML VIAL IV ×3 (02:00→10:56)
[2018-11-04] MEDS: HYDROCODONE/APAP (5/325) TAB PO (09:22)
[2018-11-04] MEDS: TRIMETHOPRIM/SULFAMETHOX (DS) TAB PO ×2 (09:22→21:56)
[2018-11-04] MEDS: HEPARIN 5,000 UNIT/1 ML VIAL SC ×2 (09:30→22:01)
[2018-11-04 09:59] LABS: ADD MAN DIFF? NO
[2018-11-04 10:01] LABS: ABNORMAL IP MESSAGE 1; HEMATOCRIT 35.8 % (37.0-47.0); HEMOGLOBIN 11.4 g/dl (12.0-16.0); LYMPHOCYTES # 0.5 10^3/ul (0.8-2.9); MEAN CORPUSCULAR HEMOGLOBIN 25.8 pg (29.0-33.0); MEAN CORPUSCULAR HGB CONC 31.8 g/dl (32.0-37.0); MEAN PLATELET VOLUME 8.7 fl (7.4-10.4); MONOCYTE # 0.1 10^3/ul (0.3-0.9); MONOCYTES % 1.3 % (0.0-11.0); NEUTROPHIL # 3.9 10^3/ul (1.6-7.5); NEUTROPHILS % 86.8 % (39.0-77.0); PLATELET COUNT 180 10^3/UL (140-415); RED BLOOD COUNT 4.42 10^6/ul (4.20-5.40); RED CELL DISTRIBUTION WIDTH 16.4 % (11.5-14.5)
[2018-11-04 10:01] LABS: WHITE BLOOD COUNT 4.5 10^3/ul (4.8-10.8)
[2018-11-04 10:11] LABS: POSITIVE DIFF @See below
[2018-11-04 10:16] LABS: HEMOGLOBIN A1C 5.3 % (0-5.9)
[2018-11-04 10:19] LABS: ALANINE AMINOTRANSFERASE 13 IU/L (13-69); ALBUMIN 3.6 g/dl (3.3-4.9); ALBUMIN/GLOBULIN RATIO 1.09; ALKALINE PHOSPHATASE 92 IU/L (42-121); ANION GAP 6 (5-13); ASPARTATE AMINO TRANSFERASE 12 IU/L (15-46); BILIRUBIN,INDIRECT 0.2 mg/dl (0-1.1); BILIRUBIN,TOTAL 0.2 mg/dl (0.2-1.3); BLOOD UREA NITROGEN 5 mg/dl (7-20); CALCIUM 9.1 mg/dl (8.4-10.2); CARBON DIOXIDE 29 mmol/L (21-31); CHLORIDE 104 mmol/L (97-110); CHOL/HDL RATIO 3.7 RATIO; CHOLESTEROL 228 mg/dl (100-200); Estimated GFR > 60 mL/min (>60); GLUCOSE 147 mg/dl (70-220); HDL CHOLESTEROL 61 mg/dl (34-88); LDL CHOLESTEROL,CALCULATED 150 mg/dl; POTASSIUM 4.3 mmol/L (3.5-5.1); SODIUM 139 mmol/L (135-144); TOTAL PROTEIN 6.9 g/dl (6.1-8.1); TRIGLYCERIDES 84 mg/dl (0-149)
[2018-11-04] MEDS: CARISOPRODOL 350 MG TAB NGT ×2 (13:27→21:56)
[2018-11-04] MEDS: GABAPENTIN 400 MG CAP PO ×2 (13:27→21:56)
[2018-11-04] MEDS: HYDROmorphONE 2 MG TAB PO ×3 (13:28→21:57)
[2018-11-05] MEDS: HYDROmorphONE 2 MG TAB PO ×5 (03:20→22:08)
[2018-11-05 06:28] LABS: ADD MAN DIFF? NO
[2018-11-05] MEDS: GABAPENTIN 400 MG CAP PO ×3 (06:32→22:07)
[2018-11-05 06:35] LABS: WHITE BLOOD COUNT 5.1 10^3/ul (4.8-10.8)
[2018-11-05 06:35] LABS: BASOPHILS % 0.4 % (0.0-2.0); HEMATOCRIT 34.7 % (37.0-47.0); HEMOGLOBIN 10.7 g/dl (12.0-16.0); LYMPHOCYTES # 1.3 10^3/ul (0.8-2.9); MEAN CORPUSCULAR HEMOGLOBIN 25.7 pg (29.0-33.0); MEAN CORPUSCULAR HGB CONC 30.8 g/dl (32.0-37.0); MEAN CORPUSCULAR VOLUME 83.2 fl (82.0-101.0); MONOCYTE # 0.5 10^3/ul (0.3-0.9); MONOCYTES % 10.7 % (0.0-11.0); NEUTROPHIL # 3.2 10^3/ul (1.6-7.5); NEUTROPHILS % 63.5 % (39.0-77.0); PLATELET COUNT 166 10^3/UL (140-415); RED BLOOD COUNT 4.17 10^6/ul (4.20-5.40); RED CELL DISTRIBUTION WIDTH 16.7 % (11.5-14.5)
[2018-11-05 07:09] LABS: ANION GAP 4 (5-13); BLOOD UREA NITROGEN 8 mg/dl (7-20); CALCIUM 8.9 mg/dl (8.4-10.2); CARBON DIOXIDE 29 mmol/L (21-31); CHLORIDE 108 mmol/L (97-110); CREATININE 0.61 mg/dl (0.44-1.00); Estimated GFR > 60 mL/min (>60); GLUCOSE 90 mg/dl (70-220); MAGNESIUM 2.1 mg/dl (1.7-2.5); PHOSPHORUS 3.5 mg/dl (2.5-4.9); SODIUM 141 mmol/L (135-144)
[2018-11-05] MEDS: TRIMETHOPRIM/SULFAMETHOX (DS) TAB PO ×2 (08:15→20:58)
[2018-11-05] MEDS: CARISOPRODOL 350 MG TAB NGT ×3 (08:15→22:03)
[2018-11-05] MEDS: HEPARIN 5,000 UNIT/1 ML VIAL SC ×2 (08:17→21:05)
[2018-11-05] MEDS: POTASSIUM CHLORIDE 10 MEQ in SOD CHLORIDE 0.45% 1,000 ML IV (17:44)
[2018-11-06] MEDS: HYDROmorphONE 2 MG TAB PO ×6 (02:06→22:27)
[2018-11-06] MEDS: POTASSIUM CHLORIDE 10 MEQ in SOD CHLORIDE 0.45% 1,000 ML IV ×2 (04:45→17:18)
[2018-11-06] MEDS: CARISOPRODOL 350 MG TAB NGT ×3 (06:08→22:26)
[2018-11-06] MEDS: GABAPENTIN 400 MG CAP PO ×3 (06:08→22:26)
[2018-11-06 06:11] LABS: ADD MAN DIFF? NO
[2018-11-06 06:16] LABS: WHITE BLOOD COUNT 4.3 10^3/ul (4.8-10.8)
[2018-11-06 06:16] LABS: BASOPHILS % 0.5 % (0.0-2.0); EOSINOPHILS # 0.2 10^3/ul (0.0-0.5); EOSINOPHILS % 4.2 % (0.0-7.0); HEMATOCRIT 34.2 % (37.0-47.0); HEMOGLOBIN 10.4 g/dl (12.0-16.0); LYMPHOCYTES # 1.6 10^3/ul (0.8-2.9); LYMPHOCYTES % 37.4 % (15.0-51.0); MEAN CORPUSCULAR HEMOGLOBIN 25.6 pg (29.0-33.0); MEAN CORPUSCULAR HGB CONC 30.4 g/dl (32.0-37.0); MEAN PLATELET VOLUME 8.7 fl (7.4-10.4); MONOCYTE # 0.4 10^3/ul (0.3-0.9); MONOCYTES % 10.4 % (0.0-11.0); PLATELET COUNT 151 10^3/UL (140-415); RED BLOOD COUNT 4.07 10^6/ul (4.20-5.40); RED CELL DISTRIBUTION WIDTH 16.7 % (11.5-14.5)
[2018-11-06 06:43] LABS: ANION GAP 6 (5-13); BLOOD UREA NITROGEN 10 mg/dl (7-20); CALCIUM 8.8 mg/dl (8.4-10.2); CARBON DIOXIDE 30 mmol/L (21-31); CHLORIDE 102 mmol/L (97-110); CREATININE 0.68 mg/dl (0.44-1.00); Estimated GFR > 60 mL/min (>60); GLUCOSE 76 mg/dl (70-220); MAGNESIUM 1.9 mg/dl (1.7-2.5); POTASSIUM 4.4 mmol/L (3.5-5.1); SODIUM 138 mmol/L (135-144)
[2018-11-06] MEDS: TRIMETHOPRIM/SULFAMETHOX (DS) TAB PO ×2 (08:43→20:37)
[2018-11-06] MEDS: HEPARIN 5,000 UNIT/1 ML VIAL SC ×2 (08:53→20:39)
[2018-11-07] MEDS: HYDROmorphONE 2 MG TAB PO ×7 (02:49→22:48)
[2018-11-07] MEDS: CARISOPRODOL 350 MG TAB NGT ×3 (06:47→22:47)
[2018-11-07] MEDS: GABAPENTIN 400 MG CAP PO ×3 (06:48→22:47)
[2018-11-07] MEDS: POTASSIUM CHLORIDE 10 MEQ in SOD CHLORIDE 0.45% 1,000 ML IV (06:50)
[2018-11-07] MEDS: TRIMETHOPRIM/SULFAMETHOX (DS) TAB PO (08:45)
[2018-11-07] MEDS: HEPARIN 5,000 UNIT/1 ML VIAL SC (08:48)
[2018-11-07] MEDS: ENOXAPARIN 100 MG/ML SYG SC ×2 (10:14→21:09)
[2018-11-07] MEDS: PIPER-TAZO 3.375 GM IV (PMX) 100 ML IVPB ×3 (11:05→23:31)
[2018-11-07 12:26] LABS: ADD MAN DIFF? NO
[2018-11-07 12:29] LABS: WHITE BLOOD COUNT 4.8 10^3/ul (4.8-10.8)
[2018-11-07 12:29] LABS: BASOPHILS % 0.4 % (0.0-2.0); EOSINOPHILS # 0.4 10^3/ul (0.0-0.5); EOSINOPHILS % 7.3 % (0.0-7.0); HEMATOCRIT 33.4 % (37.0-47.0); HEMOGLOBIN 10.3 g/dl (12.0-16.0); LYMPHOCYTES # 1.2 10^3/ul (0.8-2.9); LYMPHOCYTES % 24.3 % (15.0-51.0); MEAN CORPUSCULAR HEMOGLOBIN 25.9 pg (29.0-33.0); MEAN CORPUSCULAR HGB CONC 30.8 g/dl (32.0-37.0); MEAN CORPUSCULAR VOLUME 83.9 fl (82.0-101.0); MEAN PLATELET VOLUME 8.8 fl (7.4-10.4); MONOCYTE # 0.5 10^3/ul (0.3-0.9); NEUTROPHIL # 2.8 10^3/ul (1.6-7.5); NEUTROPHILS % 57.8 % (39.0-77.0); PLATELET COUNT 162 10^3/UL (140-415); RED BLOOD COUNT 3.98 10^6/ul (4.20-5.40); RED CELL DISTRIBUTION WIDTH 16.1 % (11.5-14.5)
[2018-11-07 12:46] LABS: ANION GAP 2 (5-13); BLOOD UREA NITROGEN 10 mg/dl (7-20); CALCIUM 8.8 mg/dl (8.4-10.2); CARBON DIOXIDE 35 mmol/L (21-31); CHLORIDE 99 mmol/L (97-110); Estimated GFR > 60 mL/min (>60); GLUCOSE 98 mg/dl (70-220); POTASSIUM 4.2 mmol/L (3.5-5.1); SODIUM 136 mmol/L (135-144)
[2018-11-07] MEDS ORDERED: IBUPROFEN 400 MG TAB PO (18:30)
[2018-11-08] MEDS: HYDROmorphONE 1 MG/ML SYG IV (01:22)
[2018-11-08] MEDS: HYDROmorphONE 2 MG TAB PO ×4 (02:43→15:13)
[2018-11-08] MEDS: HYDROmorphONE 2 MG/ML SYG IV (05:03)
[2018-11-08] MEDS: PIPER-TAZO 3.375 GM IV (PMX) 100 ML IVPB ×2 (06:07→12:16)
[2018-11-08] MEDS: CARISOPRODOL 350 MG TAB NGT ×2 (06:48→15:12)
[2018-11-08] MEDS: GABAPENTIN 400 MG CAP PO ×2 (06:48→15:12)
[2018-11-08] MEDS: ENOXAPARIN 100 MG/ML SYG SC (08:27)
[2018-11-08] MEDS ORDERED: TRIMETHOPRIM/SULFAMETHOX (DS) TAB PO (21:00)
== END 2018-11-08 18:26 | disposition home or self-care (01) | DRG 191 ==
LOC: 6WM 23:05
DX: J44.1 Chronic obstructive pulmonary disease with (acute) exacerbation (principal); L03.116 Cellulitis of left lower limb; Z68.43 Body mass index [BMI] 50.0-59.9, adult; T82.868A Thrombosis due to vascular prosthetic devices, implants and grafts, initial encounter; E66.01 Morbid (severe) obesity due to excess calories; G89.4 Chronic pain syndrome; K43.9 Ventral hernia without obstruction or gangrene; A46 Erysipelas; Y83.8 Other surgical procedures as the cause of abnormal reaction of the patient, or of later complication, without mention of misadventure at the time of the procedure; Z86.711 Personal history of pulmonary embolism; Z86.718 Personal history of other venous thrombosis and embolism; Z79.01 Long term (current) use of anticoagulants
CPT/HCPCS: 74176; 80048; 80053; 80061; 83036; 83735; 84100; 84703; 85025; 93971